=== PATIENT | male | born 1950 | race Caucasian/White ===

== ENCOUNTER → 2023-12-27 12:34 | Outpatient (CLI) | payer MEDICARE, OTHER, SELFPAY ==
--- NOTE | 2023-12-27 12:36 | DI.MRI.S_ITS ---
PROCEDURE: MR KNEE LT WO CON INDICATIONS: Effusion, left knee TECHNIQUE: Noncontrast sagittal PD fast spin echo and T2 fast spin echo with fat saturation, sagittal 3-D FLASH with fat saturation; coronal T1 spin echo and PD fast spin echo with fat saturation, and axial PD fast spin echo with fat saturation through the knee. COMPARISON: None. FINDINGS: Image quality: Excellent. Menisci: Subtle signal abnormality involving posterior horn of medial meniscus extending to inferior articulating surface suggestive of subtle oblique tear. Patient is status post prior lateral femoral tibial compartment arthroplasty. Cruciate ligaments: The anterior and posterior cruciate ligaments appears thickened with intrasubstance T2 hyperintense signal. Medial structures: The medial collateral ligament appears mildly thickened with surrounding soft tissue edema. Visualized portions of the pes anserinus tendons appear normal. No abnormal bursal fluid. Lateral structures: The lateral collateral ligament, long and short heads of the biceps femoris tendon appear grossly intact. Iliotibial band appears normal. Anterior structures: Distal quadriceps tendinosis at its superior patellar insertion is seen. Diffusely thickened patellar tendon is also noted. Patellar alignment is normal. No femoral trochlear dysplasia or ventral trochlear prominence. No edema in the infrapatellar fat pad. Bones and cartilage: There is prior lateral patellofemoral compartment arthroplasty with susceptibility artifacts. 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 No gross marrow edema. No fracture or dislocation. Joint space: There is small to moderate knee joint fluid. No Molina's cyst. Normal appearing synovial plicae are incidentally noted. IMPRESSION: 1. Prior lateral patellofemoral compartment arthroplasty with susceptibility artifacts. No gross marrow edema. No acute fracture or dislocation. 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 Small to moderate joint effusion, no loose bodies. 2. Subtle oblique tear involving posterior horn of medial meniscus extending to inferior articulating surface. 3. Degenerative changes and low-grade intrasubstance partial-thickness tear involving anterior and posterior cruciate ligaments. No full-thickness cruciate ligament rupture. 4. Low-grade MCL sprain. 5. Distal quadriceps tendinosis. Diffuse patellar tendinosis. No tendon rupture. Dictated by: Aramis Ware M.D. on 12/27/2023 at 14:56 Approved by: Aramis Ware M.D. on 12/27/2023 at 15:06
== END ==
LOC: MRI 12:36
PROVIDERS: PCP Internal Medicine; Referring Provider Orthopaedic Surgery; Visit Provider Orthopaedic Surgery
DX: S83.242A Other tear of medial meniscus, current injury, left knee, initial encounter (principal); S83.512A Sprain of anterior cruciate ligament of left knee, initial encounter; S83.522A Sprain of posterior cruciate ligament of left knee, initial encounter; S83.412A Sprain of medial collateral ligament of left knee, initial encounter; M17.12 Unilateral primary osteoarthritis, left knee; M22.42 Chondromalacia patellae, left knee; M25.462 Effusion, left knee; Z96.652 Presence of left artificial knee joint
CPT/HCPCS: 73721